=== PATIENT | male | born 1995 | race Caucasian/White ===

== ENCOUNTER 2020-12-26 22:19 | Emergency (ER) | payer SELFPAY ==
[2020-12-27] MEDS ORDERED: HYDROCODONE/APAP 7.5/325 MG TAB ONE (00:43)
[2020-12-27] MEDS ORDERED: LIDOCAINE 1% W/EPI 1:100,000 MDV 50 ML VIAL ONE (00:43)
--- NOTE | 2020-12-27 01:33 | EDPHYS ---
Physician Documentation [facility] Name: Nicholas Sanchez Age: 25 yrs Sex: Male : 1995 Arrival Date: 12/26/2020 Time: 22:45 Bed 23 Private MD: ED Physician Rubén Fisher HPI: 12/26 23:00 This 25 yrs old Male presents to ER via Wheelchair with complaints of Crush cp Injury To Leg, Laceration To Leg. 23:00 The patient presents with a crush injury, between trailer and heavy work equipment, a cp laceration. The complaints affect the lateral aspect of left calf and medial aspect of left calf. Context: The problem was sustained at work, the patient can partially bear weight, the patient is able to ambulate, with moderate difficulty. Onset: The symptoms/episode began/occurred just prior to arrival. Associated signs and symptoms: Pertinent negatives numbness, weakness. Treatment prior to arrival includes: no previous treatment. Historical: - Allergies: 22:49 No Known Allergies; tl1 - Home Meds: 22:49 None [Active]; tl1 - PMHx: 22:49 None; tl1 - PSHx: 22:49 None; tl1 - Immunization history:: Adult Immunizations unknown, Last tetanus immunization: up to date < 5 years ago. - Social history:: Smoking status: Patient denies any tobacco usage or history of. Patient/guardian denies using alcohol, street drugs. ROS: 23:05 MS/extremity: Positive for laceration, of the left lower leg, crush injury, Negative cp for decreased range of motion, deformity. 23:05 Constitutional: Negative for fever. cp 23:05 Cardiovascular: Negative for chest pain. 23:05 Respiratory: Negative for cough. 23:05 Abdomen/GI: Negative for abdominal pain. 23:05 Neuro: Negative for altered mental status, headache, numbness. 23:05 All other systems are negative. Exam: 23:10 Constitutional: The patient appears in no acute distress, alert, awake, non-toxic, well cp developed, well nourished. 23:10 Head/Face: Normocephalic, atraumatic. cp 23:10 Chest/axilla: Inspection: normal. 23:10 Cardiovascular: Rate: normal. 23:10 Respiratory: the patient does not display signs of respiratory distress, Respirations: normal. 23:10 Abdomen/GI: Inspection: abdomen appears normal. 23:10 Back: pain, is absent, ROM is normal. 23:10 Musculoskeletal/extremity: Extremities: grossly normal except: noted in the medial aspect of left calf and lateral aspect of left calf: contusion, laceration, swelling, tenderness, Perfusion: the extremity is normally perfused throughout, Sensation intact. Vital Signs: 22:50 BP 120 / 73; Pulse 83; Resp 17; Temp 98.6; Pulse Ox 98% ; Weight 74.84 kg; Height 5 ft. tl1 9 in. (175.26 cm); Pain 5/10; 22:50 Body Mass Index 24.37 (74.84 kg, 175.26 cm) tl1 Laceration: 12/27 01:30 Wound Repair of 2.5cm ( 1.0in ) subcutaneous laceration to left lower leg. Linear cp shaped.. Distal neuro/vascular/tendon intact. Anesthesia: Wound infiltrated with 8 mls of 1% lidocaine w/ Epi. Wound prep: Moderate cleansing by me, Wound irrigation by me. Skin closed with 2 4-0 Prolene using horizontal mattress sutures and sterile technique. Dressed with Bacitracin, 4x4's. Patient tolerated well. MDM: 00:14 Patient medically screened. cp 00:30 Differential diagnosis: dislocation, open fracture, closed fracture, contusion, simple cp laceration, compartment syndrome. 01:31 Data reviewed: vital signs, nurses notes, radiologic studies, plain films. Test cp interpretation: by ED physician or midlevel provider: xrays of left tib/fib negative for fracture. Counseling: I had a detailed discussion with the patient and/or guardian regarding: the historical points, exam findings, and any diagnostic results supporting the discharge/admit diagnosis, radiology results, to return to the emergency department if symptoms worsen or persist or if there are any questions or concerns that arise at home. Response to treatment: the patient's symptoms have markedly improved after treatment, and as a result, I will discharge patient. 12/26 22:54 Order name: XRAY Tib Fib LEFT tl1 12/27 00:15 Order name: Dressing - Wound; Complete Time: 00:54 cp 12/27 00:15 Order name: Gloves, Sterile; Complete Time: 00:19 cp 12/27 00:15 Order name: Setup Suture Tray; Complete Time: 00:19 cp 12/27 01:29 Order name: Wound dressing; Complete Time: : cp 12/27 01:29 Order name: Crutches; Complete Time: cp Administered Medications: 00:22 Drug: Hydrocodone-Acetaminophen (7.5 mg-325 mg) 1 tabs Route: PO; em 01:29 Follow up: Response: No adverse reaction; Marked relief of symptoms em 00:40 Drug: Lidocaine-Epinephrine -1%: (1:100,000) 10 ml Volume: 20 ml; Route: Infiltration; em Site: wound; : Follow up: Response: No adverse reaction; Pain is decreased em Disposition: 01:35 Chart complete. cp 06:46 Co-signature as Attending Physician, Rubén Fisher MD. rn Disposition Summary: 12/27/20 01:33 Discharge Ordered Location: Home cp Problem: new cp Symptoms: have improved cp Condition: Stable cp Diagnosis - Crushing injury of left lower leg, initial encounter cp - Laceration without foreign body of lower leg - left cp Followup: cp - With: Private Physician - When: 10 - 14 days - Reason: Staple/Suture removal Discharge Instructions: - Discharge Summary Sheet cp - Laceration Care, Adult cp Forms: - Medication Reconciliation Form cp - Thank You Letter cp - Antibiotic Education cp - Prescription Opioid Use cp Prescriptions: - Cephalexin 500 mg Oral Capsule - take 1 capsule by ORAL route every 8 hours for 10 days; 30 capsule; Refills: 0, cp Product Selection Permitted - Ibuprofen 800 mg Oral Tablet - take 1 tablet by ORAL route every 8 hours As needed take with food; 30 tablet; cp Refills: 0, Product Selection Permitted Signatures: Dispatcher [employer] Tyler Lopez RN Rubén Cisneros MD MD rn Lasagna, Tonya RN RN tl1 Adelfo Mckinley PA PA cp
--- NOTE | 2020-12-27 01:33 | ER ---
Nurse's Notes [facility] Name: Nicholas Sanchez Age: 25 yrs Sex: Male : 1995 Arrival Date: 12/26/2020 Time: 22:45 Bed 23 Private MD: Diagnosis: Crushing injury of left lower leg, initial encounter;Laceration without foreign body of lower leg-left Presentation: 12/26 22:47 Chief complaint: Patient states: I have a cut on my lower leg from machine at work. My tl1 leg got pinned in between the trailer and the machine. This happened about 3 hours ago. Coronavirus screen: Client denies travel out of the [place] in the last 14 days. Ebola Screen: Patient negative for fever greater than or equal to 101.5 degrees Fahrenheit, and additional compatible Ebola Virus Disease symptoms Patient denies exposure to infectious person. Patient denies travel to an Ebola-affected area in the 21 days before illness onset. Initial Sepsis Screen: Does the patient meet any 2 criteria? No. Patient's initial sepsis screen is negative. Does the patient have a suspected source of infection? No. Patient's initial sepsis screen is negative. Risk Assessment: Do you want to hurt yourself or someone else? Patient reports no desire to harm self or others. Onset of symptoms was December 26, 2020. 22:47 Method Of Arrival: Wheelchair tl1 22:47 Acuity: GREGORIO 4 tl1 Historical: - Allergies: 22:49 No Known Allergies; tl1 - Home Meds: 22:49 None [Active]; tl1 - PMHx: 22:49 None; tl1 - PSHx: 22:49 None; tl1 - Immunization history:: Adult Immunizations unknown, Last tetanus immunization: up to date < 5 years ago. - Social history:: Smoking status: Patient denies any tobacco usage or history of. Patient/guardian denies using alcohol, street drugs. Screenin/22 00:29 Abuse screen: Denies threats or abuse. Nutritional screening: No deficits noted. em Tuberculosis screening: No symptoms or risk factors identified. Fall Risk None identified. Assessment: 00:29 General: Appears in no apparent distress. comfortable, Behavior is calm, cooperative. em Pain: Complains of pain in left multani Pain currently is 5 out of 10 on a pain scale. Neuro: Level of Consciousness is awake, alert, obeys commands, Oriented to person, place, time, situation. Cardiovascular: Capillary refill < 3 seconds Patient's skin is warm and dry. Respiratory: Airway is patent Respiratory effort is even, unlabored, Respiratory pattern is regular, symmetrical. Derm: Wound noted left multani. Musculoskeletal: Capillary refill < 3 seconds, Range of motion: intact in all extremities, Swelling absent. Vital Signs: 12/26 22:50 BP 120 / 73; Pulse 83; Resp 17; Temp 98.6; Pulse Ox 98% ; Weight 74.84 kg; Height 5 ft. tl1 9 in. (175.26 cm); Pain 5/10; 22:50 Body Mass Index 24.37 (74.84 kg, 175.26 cm) tl1 ED Course: 22:45 Patient arrived in ED. mw2 22:49 Triage completed. tl1 22:49 Arm band placed on right wrist. tl1 23:39 Adelfo Mckinley PA is PHCP. cp 23:39 Rubén Fisher MD is Attending Physician. cp 07 00:11 Adelfo Mckinley PA is PHCP. cp 00:11 Rubén Fisher MD is Attending Physician. cp 00:19 Tyler Phillips, RN is Primary Nurse. em 00:23 XRAY Tib Fib LEFT In Process Unspecified. EDMS 00:29 Patient has correct armband on for positive identification. Bed in low position. Adult em w/ patient. 01:31 Assist provider with laceration repair on left multani that was between 2.6 to 7.5 cm em using sutures. Set up tray. Performed by Adelfo DUBOIS Dressed with 4X4s, Kerlix, Neosporin, Patient tolerated well. 01:45 Patient did not have IV access during this emergency room visit. em Administered Medications: 00:22 Drug: Hydrocodone-Acetaminophen (7.5 mg-325 mg) 1 tabs Route: PO; em 01:29 Follow up: Response: No adverse reaction; Marked relief of symptoms em 00:40 Drug: Lidocaine-Epinephrine -1%: (1:100,000) 10 ml Volume: 20 ml; Route: Infiltration; em Site: wound; :29 Follow up: Response: No adverse reaction; Pain is decreased em Outcome: 01:33 Discharge ordered by . cp 01:45 Discharged to home with crutches, with family. em 01:45 Condition: good 01:45 Discharge instructions given to patient, family, Instructed on discharge instructions, follow up and referral plans. medication usage, wound care, Demonstrated understanding of instructions, follow-up care, medications, wound care, crutch walking, Prescriptions given X 2. 01:46 Patient left the ED. em Signatures: Dispatcher [employer] Tyler Lopez RN RN em Lasagna, Tonya, RN RN tl1 Adelfo Mckinley PA PA cp [place], MyKena mw2
[2020-12-27 02:23] VITALS: BP 120/73; TEMP 98.6; O2SAT 98
--- NOTE | 2020-12-27 07:21 | RAD REPORT ---
EXAM DESCRIPTION: RAD - Tib Fib Left - 12/27/2020 12:23 am CLINICAL HISTORY: SMASH INJURY COMPARISON: No comparisons FINDINGS: No fracture of the tibia or fibula is identified. No radiopaque foreign bodies. IMPRESSION: No fracture of the tibia or fibula.
== END 2020-12-27 01:46 | disposition home or self-care (01) ==
LOC: ER 22:19
PROC: 0JQP0ZZ Repair Left Lower Leg Subcutaneous Tissue and Fascia, Open Approach (ICD-10-PCS; principal; 2020-12-27)
DX: S81.812A Laceration without foreign body, left lower leg, initial encounter (principal); W31.89XA Contact with other specified machinery, initial encounter; Y93.89 Activity, other specified; Y92.89 Other specified places as the place of occurrence of the external cause; Y99.8 Other external cause status
CPT/HCPCS: 99284